=== PATIENT | female | born 1985 | race Caucasian/White ===

== ENCOUNTER 2018-11-13 11:55 | Outpatient (CLI) | payer MEDICAID, SELFPAY ==
[2018-11-13 12:23] LABS: Abs Immature Grans 0.01 k/cumm (0.0-0.09); Absolute Basophil Count 0.02 k/cumm (0.0-0.2); Absolute Eosinophil Count 0.14 k/cumm (0.0-0.7); Absolute Lymphocyte Count 2.61 k/cumm (1.2-3.4); Absolute Monocyte Count 0.47 k/cumm (0.11-0.7); Absolute Neutrophil Count 4.57 k/cumm (1.2-6.7); Basophils % 0.3; Eosinophils % 1.8; HCT 37.5 % (36.0-46.0); HGB 12.7 g/dL (12.0-15.5); Immature Grans % 0.1; Lymphocytes % 33.4; Mean Corp. HGB Concentration 33.9 g/dL (32.0-36.0); Mean Corpuscular Hemoglobin 27.5 pg (27.0-33.0); Mean Corpuscular Volume 81.3 fL (80-95); Mean Platelet Volume 10.3 fL (8.0-11.0); Neutrophils % 58.4; RBC 4.61 m/cumm (4.00-5.20); RBC Distribution Width 14.9 % (11.7-14.6); White Blood Cell Count 7.82 k/cumm (4.4-10.8)
[2018-11-13 12:50] LABS: Diff Comment Diff Reviewed; Platelet Count 342 x1000/uL (130-400); RBC Morphology Normal
[2018-11-13 13:44] LABS: ALT 24 U/L (14-59); AST 15 U/L (15-37); Albumin 3.9 g/dL (3.4-5.0); Alkaline Phosphatase 84 U/L (46-116); Bilirubin, Direct 0.09 mg/dL (0.00-0.20); Bilirubin, Total 0.4 mg/dL (0.2-1.0); Total Protein 6.9 g/dL (6.4-8.2)
[2018-11-14 10:29] LABS: IgA 260 mg/dL (85-499); IgG 761 mg/dL (610-1616); IgM 72 mg/dL (35-242)
[2018-11-14 14:19] LABS: CD19 <1 %; CD20 <1 %
== END 2018-11-13 12:15 ==
PROVIDERS: PCP Nurse Practitioner Adult Health; Visit Provider Psychiatry & Neurology Neurology
DX: G35 Multiple sclerosis (principal)
CPT/HCPCS: 36415; 80076; 82784; 88184; 88185; 85025

== ENCOUNTER 2019-03-24 18:47 | Emergency (ER) | payer MEDICAID, SELFPAY ==
[2019-03-24 18:52] VITALS: BP 146/101; PULSE 88; RESP 18; TEMP 36.5; O2SAT 99
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
[2019-03-24] MEDS: Ibuprofen 600 MG TAB PO (19:20)
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
[2019-03-24 19:44] VITALS: BP 133/74; PULSE 88; RESP 18; O2SAT 99
== END 2019-03-24 19:45 | disposition home or self-care (01) ==
PROVIDERS: Emergency Provider Physician Assistant; PCP Nurse Practitioner Adult Health
DX: S63.502A Unspecified sprain of left wrist, initial encounter (principal); V43.52XA Car driver injured in collision with other type car in traffic accident, initial encounter; G35 Multiple sclerosis; I10 Essential (primary) hypertension
CPT/HCPCS: 29125; 99283; 73110; L3807

== ENCOUNTER 2021-09-28 13:03 | Outpatient (CLI) | payer MEDICAID, SELFPAY ==
[2021-09-28 13:23] LABS: Abs Immature Grans 0.04 10^3/uL (0.0-0.06); Absolute Basophil Count 0.07 10^3/uL (0.0-0.2); Absolute Eosinophil Count 0.12 10^3/uL (0.0-0.7); Absolute Lymphocyte Count 1.94 10^3/uL (1.2-3.4); Absolute Monocyte Count 0.65 10^3/uL (0.1-0.8); Absolute Neutrophil Count 6.96 10^3/uL (1.2-6.7); Basophils % 0.7; Eosinophils % 1.2; HCT 40.5 % (36.0-46.0); HGB 13.7 g/dL (11.2-15.7); Immature Grans % 0.4; Lymphocytes % 19.8; MCH 29.1 pg (27.0-33.0); MCHC 33.8 % (32.0-36.0); MCV 86 fL (80-95); MPV 10.3 fL (8.0-11.0); Monocytes % 6.6; Neutrophils % 71.3; Platelet Count 293 10^3/uL (130-400); RBC 4.71 10^6/uL (3.93-5.22); RDW 12.8 % (11.7-14.6); RDW-SD 39.8 fL; WBC 9.78 10^3/uL (4.4-10.8)
[2021-09-28 14:29] LABS: ALT 21 U/L (14-59); AST 10 U/L (15-37); Albumin 3.8 g/dL (3.4-5.0); Alkaline Phosphatase 77 U/L (46-116); Bilirubin, Direct 0.1 mg/dL (0.0-0.2); Bilirubin, Total 0.4 mg/dL (0.2-1.0)
[2021-09-29 09:43] LABS: IgA 186 mg/dL (85-499); IgG 638 mg/dL (610-1,616); IgM 51 mg/dL (35-242)
[2021-09-29 16:12] LABS: CD19 <1 % (6-24); CD20 <1 % (6-24)
== END 2021-09-28 13:04 | disposition home or self-care (01) ==
LOC: LBO 13:03
PROVIDERS: PCP Nurse Practitioner Adult Health; Visit Provider Psychiatry & Neurology Neurology
DX: G35 Multiple sclerosis (principal)
CPT/HCPCS: 36415; 80076; 82784; 88184; 88185; 85025

== ENCOUNTER 2021-12-11 09:19 | Emergency (ER) | payer MEDICAID, SELFPAY ==
[2021-12-11 09:25] VITALS: BP 145/99; PULSE 99; RESP 18; TEMP 37.2; O2SAT 99
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
[2021-12-11 10:45] LABS: Anion Gap 9.5 mmol/L (3-11); BUN 5 mg/dL (7-18); CO2 25.5 mmol/L (21.0-32.0); CREATININE 0.7 mg/dL (0.55-1.02); Calcium 8.6 mg/dL (8.5-10.1); Chloride 103 mmol/L (98-107); Estimated GFR 116.31 (mL/min/1.73m2); Glucose 85 mg/dL (74-106); Potassium 3.7 mmol/L (3.5-5.1); Sodium 138 mmol/L (136-145)
[2021-12-11 10:51] LABS: Influenza A PCR Negative (Negative); Influenza B PCR Negative (Negative); RSV PCR Negative (Negative)
[2021-12-11 10:55] LABS: COVID-19 PCR Positive (Negative)
[2021-12-11 11:43] VITALS: BP 146/101; PULSE 87; RESP 21; TEMP 38; O2SAT 100
== END 2021-12-11 14:12 | disposition home or self-care (01) ==
PROVIDERS: Emergency Provider Student in an Organized Health Care Education/Training Program; PCP Nurse Practitioner Adult Health
DX: U07.1 COVID-19 (principal); Z28.310 Unvaccinated for COVID-19; I10 Essential (primary) hypertension
CPT/HCPCS: 36415; 80048; 87637; 99283; 99284

== ENCOUNTER 2022-04-12 16:26 | Outpatient (REF) | payer MEDICAID, SELFPAY | END 2022-04-12 16:27 | disposition home or self-care (01) | LOC: LBN 16:26 | PROVIDERS: PCP Nurse Practitioner Adult Health; Referring Provider Nurse Practitioner Adult Health; Visit Provider Nurse Practitioner Adult Health | DX: R30.0 Dysuria (principal) | CPT/HCPCS: 87086 ==

== ENCOUNTER 2022-04-21 10:47 | Emergency (ER) | payer MEDICAID, SELFPAY ==
[2022-04-21 10:54] VITALS: BP 153/109; PULSE 93; RESP 18; TEMP 37.1; O2SAT 100
[2022-04-21] MEDS: methylPREDNISolone ACETATE 80 MG/ML VIAL IM (11:56)
[2022-04-21] MEDS: Cyclobenzaprine 10 MG TAB PO (11:56)
[2022-04-21] MEDS: Ketorolac 10 MG TAB PO (12:08)
--- NOTE | 2022-04-21 13:22 | W.ED.GENAD ---
Discharge Plan Disposition Patient Disposition: Home Discharge Details Clinical Impression: Lumbar back sprain, Radiculopathy Primary Care Provider: Cindy Hollingsworth ED Provider: Christiano Taylor Home Meds and New Rx's Prescriptions: New ketorolac 10 mg tablet 10 mg PO QID PRN (Reason: pain) 5 Days Qty: 20 0RF cyclobenzaprine 10 mg tablet 10 mg PO TID PRN (Reason: muscle spasm) Qty: 20 0RF Discharge Instructions Instructions: Acute Low Back Pain (ED), Lower Back Exercises (ED) Additional Instructions: Continue to monitor symptoms and you may perform activity as tolerated by pain. It is recommended that you continue to perform light activities in spite of your pain. While on prescribed medication do not take any further NSAIDs but you may take up to 4000 mg of acetaminophen in a 24-hour period. Please follow-up with your primary care provider for reassessment if not improving in the next 1 to 2 weeks Stand Alone Forms: Work Release Discharge Data Discharge Date/Time-TO BE ENTERED AT DEPARTURE: 04/21/22 13:42 Medical Decision Making Patient here for back pain. Patient reports yesterday while at school and bending motions started having some back pain. Patient started having continued spasms and worsening pain throughout yesterday and this evening. She does state some radiation into her left leg. Denies bowel or bladder changes, severe dysfunction of lower extremity, saddle anesthesia, fever or chills. Physical exam does show some tenderness to the lumbar spine but more tenderness is noted over the left paraspinal tissue that does exacerbate pain. Based upon physical exam I feel patient is at LOW risk for ABDOMINAL AORTIC ANEURYSM, CAUDA EQUINA SYNDROME, EPIDURAL MASS LESION, SPINAL STENOSIS, OR HERNIATED DISK CAUSING SEVERE STENOSIS, thus I consider the discharge disposition reasonable. Patient does have history of anxiety and MS. We will treat patient with Toradol, Flexeril, and Depo-Medrol . Reassessed patient and she does state some improvement of symptoms but continuing to have spasms. I do feel that patient is able to be safely discharged home but will prescribe small amount of diazepam for patient to take at home to help with further spasms otherwise patient to continue with NSAIDs and Flexeril. We have discussed the diagnosis and risks, and we agree with discharging home to follow-up with their primary doctor. We also discussed returning to the Emergency Department immediately if new or worsening symptoms occur. We have discussed the symptoms which are most concerning (e.g., saddle anesthesia, urinary or bowel incontinence or retention, changing or worsening pain) that necessitate immediate return. After discussion of diagnosis and plan of care patient has no further needs, questions, or concerns and states clear understanding to return to the emergency department for any worsening symptoms. This documentation was generated using [employer] dictation system, please disregard any oddities of phrase or misspellings. HPI General Mode of arrival: wheelchair. Date/Time Provider Initiated Documentation: 04/21/22 11:28. Limitations to Documentation: no limitations. Information obtained by: patient, family and RN notes reviewed. History of Present Illness 36 year old F presents to the emergency department with the chief complaint of Back pain, described as severe, with intensity rated at 9. Quality is described as sharp, and is localized to the back. Patient extremity. Patient started experiencing this day(s) (1) and it has been constant. No relieving factors improve symptom(s), No exacerbating factors reported . Patient notes no other symptoms.. Patient did receive the following treatments prior to arrival, other (Acetaminophen) Related Data Home Medications Medication Instructions Recorded Confirmed cyclobenzaprine 10 mg tablet 10 mg PO TID PRN muscle spasm #20 04/21/22 tabs ketorolac 10 mg tablet 10 mg PO QID PRN pain 5 days #20 04/21/22 tabs Previous Rx's Medication Instructions Recorded cyclobenzaprine 10 mg tablet 10 mg PO TID PRN muscle spasm #20 04/21/22 tabs ketorolac 10 mg tablet 10 mg PO QID PRN pain 5 days #20 04/21/22 tabs Allergies Allergy/AdvReac Type Severity Reaction Status Date / Time dimethyl fumarate Allergy Severe Drop in BP Verified 04/21/22 11:33 and K (ER visit 12/17/13) Tecficdera [place] [facility] [place] Allergy Unknown Verified 04/21/22 11:33 codeine AdvReac Unknown n/v Verified 04/21/22 11:33 Penicillins AdvReac Other (See Verified 04/21/22 11:33 Comment) General Stated Complaint: Nk/Back Pain DIANE: 3 Review of Systems Constitutional Constitutional: Denies chills and Denies fever(s) Cardiovascular Cardiovascular: Denies chest pain and Denies dyspnea on exertion Respiratory Respiratory: Denies cough and Denies dyspnea on exertion Gastrointestinal Gastrointestinal: Denies abdominal pain, Denies change in bowel habits, Denies diarrhea, Denies nausea and Denies vomiting Genitourinary Genitourinary: Denies urinary incontinence Musculoskeletal Musculoskeletal: Reports as per HPI and Reports back pain Neurologic Neurologic: Denies sensory deficit PFSH All Active Problems (Updated 04/21/22 @ 13:29 by Christiano Taylor NP) Lumbar back sprain (Acute) Radiculopathy (Acute) Rosacea, acne (Acute ~03/2022) Depression (Chronic) Allergic asthma (Chronic) L-T Albuterol or Xopenex RX Multiple sclerosis (Chronic 07/04/13) [place] [facility] [place] [facility] [place]: repeat MRI scan brain with and without contrast in Apr 2019. repeat CBC with diff, LFT's,IgG,IgM,IgA,and CD19 in apr 2018. F/U 2 months. 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) RX Buspar Failed Sertraline (09/2015) COVID-19 (~12/11/21) Elevated blood-pressure reading without diagnosis of hypertension (10/14/13) Essential hypertension (10/17/13) Gastroesophageal reflux disease (02/16/15) Hypertension during (10/10/13) SARS-CoV-2 positive (~01/2021) s/p MAB Thoracic back pain (10/14/13) Since 16yo Leg length discrepancy; has shoe lifts, but doesn't wear them Varicella (~03/1993) Viral wart on finger Surgical History Hx of tubal ligation (~03/2016) Family History Mother Smoker Father Chewing tobacco nicotine dependence Gastric bypass status for obesity Brother Nicotine dependence Paternal Grandfather Myocardial infarct Maternal Grandfather Myocardial infarct S/P CABG x 3 Maternal Aunt Kidney disease and pancreatic transplant Social History Smoking/Tobacco Use Status: Never Smoking risk assessment performed?: Yes Alcohol Intake: never Drug use: Never Substance use type: does not use Adopted: No Household members: spouse Number of Children: 3 current occupation: pursuing Disability for MS dx Pets and animals: Yes Sexually active: Yes Other: 3 children Erika 2007, Roman 2009jameson 2017 What is your relationship status?: Panel score (0-1 are the most socially isolated patients): 1 What type of physical activity do you participate in: none Seatbelt use: always Water heater temp set <120 deg: Yes Working smoke detector in home: Yes Fire extinguisher in home: Yes Do you feel safe at home: Yes Victim of physical abuse: No Victim of emotional abuse: No Victim of sexual abuse: No Additional Social history: Children: Erika warner. 2007, Roman warner. 2009, Krystina b. 2017. Hospitalizations: 1. , 2007 2. , 2009 3. Tonsillectomy, 2004 4. 2016 History History 3 Para 3 Hx # Term Pregnancies Multiple births Hx # Pregnancies Ectopic pregnancies AB induced Hx Number of Living Children AB spontaneous Exam Const General: cooperative and no acute distress Orientation: alert, awake and oriented x3 Neck Neck: normal visual inspection, full ROM and no meningeal signs Resp Effort & Inspection: normal respiratory effort Auscultation: clear to auscultation bilaterally Cardio Rate: regular rate Rhythm: regular rhythm Heart Sounds: S1 normal and S2 normal GI Palpation: no hepatosplenomegaly, no aortic enlargement, no masses and no pulsatile masses Back/Spine/Pelvis Thoracic/Lumbar Spine: pain with thoraco-lumbar ROM, paraspinal tenderness, thoraco-lumbar ROM limited and lumbar spinal tenderness Pelvis: no pain with anterior-posterior compression and no pain with lateral compression Neuro General: patient alert, patient awake and patient oriented x3 DTR's: Rt Patellar: 2+, Lt Patellar: 2+, Rt Ankle: 2+ and Lt Ankle: 2+ Course Vital Signs Vital signs: Vital Signs Temperature 37.1 C 04/21/22 10:54 Pulse 93 H 04/21/22 10:54 Respiratory Rate 18 04/21/22 10:54 Blood Pressure 153/109 H 04/21/22 10:54 Pulse Oximetry 100 04/21/22 10:54 Temperature 37.1 C 04/21/22 10:54 Temperature Source Tympanic 04/21/22 10:54 Pulse 93 H 04/21/22 10:54 Respiratory Rate 18 04/21/22 10:54 Respiratory Effort Normal, Non-Labored 04/21/22 11:19 Blood Pressure 153/109 H 04/21/22 10:54 Blood Pressure Position Sitting 04/21/22 10:54 Pulse Oximetry 100 04/21/22 10:54 Oxygen Delivery Method Room Air 04/21/22 10:54 Oxygen Flow Rate 0 04/21/22 10:54 Pain Level 10 04/21/22 10:54 Lab/Test Results Lab/Test Results: POC- Test(urine) Negative
[2022-04-21 13:40] VITALS: BP 147/93; PULSE 85; RESP 18; O2SAT 99
[2022-04-21] MEDS: diazePAM 2 MG TAB PO ×2 (13:41)
[2022-04-21] MEDS: Ketorolac 15 MG/ML VIAL IM (13:41)
== END 2022-04-21 13:42 | disposition home or self-care (01) ==
PROVIDERS: Emergency Provider Nurse Practitioner Family; PCP Nurse Practitioner Adult Health
DX: S33.5XXA Sprain of ligaments of lumbar spine, initial encounter (principal); X50.3XXA Overexertion from repetitive movements, initial encounter; M54.15 Radiculopathy, thoracolumbar region
CPT/HCPCS: 81025; 96372; 96374; 99284; J1040; J1885

== ENCOUNTER 2024-09-01 14:33 | Outpatient (REF) | payer MEDICAID, SELFPAY ==
--- NOTE | 2024-09-01 14:15 | PAPFT_PTH ---
PATIENT: Azalea Cruz LOC: [facility] U#:[id number] AGE/SX: 39/F ROOM: RE09/01/[address]: Cindy Hollingsworth APRN : 1985 BED: DIS: 09/01/2024 SPEC #: [id number] RECD: 09/01/24 18:11 STATUS: TAMEKA REQ #: [id number] DIANE: 09/01/24 14:[address]: Cindy Hollingsworth DEPT: [facility] Cytology RECD BY: Ashley Chester Tissues: 1 - CX/ENDOCX FOR PAP SMEARS Procedures: PAP THIN PREP/U[facility] Screening HPV DNA PROBE Comments: [id number] (HPV 16 & 18/45)
== END 2024-09-01 14:34 | disposition home or self-care (01) ==
LOC: LBN 14:33
PROVIDERS: PCP Nurse Practitioner Adult Health; Visit Provider Nurse Practitioner Adult Health
DX: Z12.4 Encounter for screening for malignant neoplasm of cervix (principal)
CPT/HCPCS: 88142; 87624

== ENCOUNTER → 2025-01-05 16:14 | Outpatient (CLI) | payer MEDICAID, SELFPAY ==
--- NOTE | 2025-01-05 15:30 | DI.RAD_ITS ---
Exam(s) XR FOOT RT COMPLETE EXAM: XR FOOT RT COMPLETE CLINICAL HISTORY: M79.671 Pain RT foot, r/o bony abn; bone spur. TECHNIQUE: 2D digital imaging was performed. COMPARISON: No exams were available for comparison FINDINGS: 3 views No evidence of fracture or diastasis of the Lisfranc joint. The great toe metatarsophalangeal joint as well as the other articulations of the foot appear unremarkable. No pes planus. No inferior calcaneal spur nor posterior enthesophyte evident and there is no abnormal calcification plantar fascia nor within the Achilles tendon. IMPRESSION: No significant radiographic findings in the right foot. DATA REPOSITORY: RADIATION DOSE DELIVERED:
== END ==
LOC: DI 16:16
PROVIDERS: PCP Nurse Practitioner Adult Health; Visit Provider Nurse Practitioner Adult Health
DX: M79.671 Pain in right foot (principal)
CPT/HCPCS: 73630

== ENCOUNTER → 2025-01-27 01:37 | Outpatient (CLI) | payer MEDICAID, SELFPAY ==
--- NOTE | 2025-01-27 06:45 | DI.MRI_ITS ---
Exam(s) MR LUMBAR SPINE WO EXAM: MR LUMBAR SPINE WO CLINICAL HISTORY: new L 5-S 1 lt lateral neuralgia,assess disease,? lumbar lesions,radiculo. TECHNIQUE: Multiplanar multisequence MRI of the Lumbar spine was performed. COMPARISON: No exams were available for comparison FINDINGS: Bones: The last intervertebral disc space is designated the L5/S1 level for the numbering purpose of this examination. The vertebral body heights are well maintained. Alignment is satisfactory. The signal characteristics are unremarkable. Cord: It is of normal size and signal intensity. T12-L1: No disc herniations or bulges are present. No central spinal canal or neural foraminal stenosis. L1-2: No disc herniations or bulges are present. No central spinal canal or neural foraminal stenosis. L2-3: No disc herniations or bulges are present. No central spinal canal or neural foraminal stenosis. L3-4: There is a small central disc herniation. There is disc desiccation. There is mild narrowing of the central spinal canal. There is no neural foraminal stenosis. L4-5: There is a mild diffuse disc bulge. No central spinal canal or neural foraminal stenosis. L5-S1: No disc herniations or bulges are present. No central spinal canal or neural foraminal stenosis. Soft tissues: The visualized SI joints and sacrum are well maintained. The paraspinal soft tissues are unremarkable. IMPRESSION: Disc desiccation and small disc herniation at L3-L4 resulting in mild narrowing of the central spinal canal. No nerve root compression or neural foraminal stenosis is seen. DATA REPOSITORY:
== END ==
LOC: DI 01:37
PROVIDERS: PCP Nurse Practitioner Adult Health; Visit Provider Nurse Practitioner Adult Health
DX: G35.D Multiple sclerosis, unspecified (principal); M54.17 Radiculopathy, lumbosacral region; M51.26 Other intervertebral disc displacement, lumbar region
CPT/HCPCS: 72148